=== PATIENT | male | born 1955 | race Caucasian/White ===

== ENCOUNTER → 2019-12-06 | Outpatient (CLI) | payer OTHER ==
--- NOTE | 2019-12-06 11:39 | RAD ---
SHOULDER 2+V RIGHT 12/06/2019 12:00 AM INDICATION: Right shoulder pain COMPARISON: None available. TECHNIQUE: 3 views of the right shoulder are provided. FINDINGS/ IMPRESSION: 1. There is moderate to advanced glenohumeral osteoarthrosis with joint space narrowing marginal osteophytosis with subcortical sclerosis. 2. Ossific bodies are identified within the right glenohumeral joint space measuring up to 1.9 cm. 3. Acromioclavicular joint is well aligned. No acute fracture or dislocation. Adjacent ribs are intact. Electronically signed by: Dimple Goodwin MD (12/06/2019 11:37 AM) [id number]
== END ==
LOC: RAD 08:55
PROVIDERS: ATTEND Family Medicine
DX: M19.011 Primary osteoarthritis, right shoulder (principal); M25.711 Osteophyte, right shoulder
CPT/HCPCS: 73030